=== PATIENT | male | born 1955 | race Caucasian/White ===

== ENCOUNTER 2019-09-22 07:14 | Day surgery (SDC) | payer OTHER ==
[~2019-09-22] VITALS: Ht 182.9 cm; Wt 134.5 kg
[~2019-09-22 07:14] MED LIST: Cyclobenzaprine5 MG PO; LOSA25 PO; MIRALAX17 GM PO; TRAM50 PO; VITAMIN D31000 UNI1 PO
== END 2019-09-22 09:55 | disposition home or self-care (01) ==
LOC: ORSCSDS 07:14
PROVIDERS: Student in an Organized Health Care Education/Training Program
PROC: 0DBK8ZX Excision of Ascending Colon, Via Natural or Artificial Opening Endoscopic, Diagnostic (ICD-10-PCS; principal; 2019-09-22 08:30)
PROC: 0DBL8ZX Excision of Transverse Colon, Via Natural or Artificial Opening Endoscopic, Diagnostic (ICD-10-PCS; principal; 2019-09-22 08:30)
DX: Z12.11 Encounter for screening for malignant neoplasm of colon (principal); Z86.010 Personal history of colon polyps; D12.2 Benign neoplasm of ascending colon; D12.3 Benign neoplasm of transverse colon; K57.30 Diverticulosis of large intestine without perforation or abscess without bleeding; K64.8 Other hemorrhoids; I10 Essential (primary) hypertension; Z87.891 Personal history of nicotine dependence; Z79.899 Other long term (current) drug therapy
CPT/HCPCS: 88305; J2405; J2704; J7120